=== PATIENT | male | born 1965 | race Two or more races ===

== ENCOUNTER 2023-09-26 11:52 | Emergency (ER) | payer MEDICAID ==
[~2023-09-26] VITALS: Ht 162.6 cm; Wt 72.6 kg
[2023-09-26 12:11] VITALS: BP 139/90; TEMP 97.9; O2SAT 98
[2023-09-26] MEDS ORDERED: IBUP-1955 PO (13:49)
== END 2023-09-26 13:55 | disposition home or self-care (01) ==
LOC: ER 11:52
DX: S83.91XA Sprain of unspecified site of right knee, initial encounter (principal); J45.909 Unspecified asthma, uncomplicated; Z88.0 Allergy status to penicillin; Z60.2 Problems related to living alone; X50.1XXA Overexertion from prolonged static or awkward postures, initial encounter; Y93.89 Activity, other specified; Y92.89 Other specified places as the place of occurrence of the external cause; Y99.8 Other external cause status
CPT/HCPCS: 73564-TC

== ENCOUNTER 2025-02-24 13:10 | Emergency (ER) | payer MEDICAID ==
[~2025-02-24] VITALS: Ht 162.6 cm; Wt 72.6 kg
[~2025-02-24 13:10] MED LIST: IBUP-1955 PO
[2025-02-24 13:32] VITALS: BP 150/94; TEMP 98.3; O2SAT 99
[2025-02-24] MEDS ORDERED: CEPH-570 PO (14:59)
[2025-02-24] MEDS ORDERED: CLIN300C12 PO (15:27)
== END 2025-02-24 16:00 | disposition home or self-care (01) ==
LOC: ER 13:14
DX: S02.2XXA Fracture of nasal bones, initial encounter for closed fracture (principal); I10 Essential (primary) hypertension; J45.909 Unspecified asthma, uncomplicated; Z88.0 Allergy status to penicillin; Z60.2 Problems related to living alone; Z79.899 Other long term (current) drug therapy; X58.XXXA Exposure to other specified factors, initial encounter; Y93.89 Activity, other specified; Y92.89 Other specified places as the place of occurrence of the external cause; Y99.8 Other external cause status
CPT/HCPCS: 70486-TC

== ENCOUNTER 2025-06-15 12:51 | Emergency (ER) | payer MEDICAID ==
[~2025-06-15] VITALS: Ht 162.6 cm; Wt 71.2 kg
[~2025-06-15 12:51] MED LIST changes: +CLIN300C12 PO
[2025-06-15] MEDS: IV NS 0.9% 1,000 ML BAG IV ONE (13:15)
[2025-06-15 13:19] LABS: PLATELET COUNT (AUTO) 189 K/uL (150-450); RED BLOOD CELL COUNT(AUTO) 5.00 MIL/uL (4.5-6.0); RED CELL DISTRIBUTION WIDTH 13.0 % (11.5-15.0); WHITE BLOOD COUNT (AUTO) 4.8 K/uL (4.3-11.0)
[2025-06-15 13:25] LABS: CALCIUM, SERUM 9.1 mg/dL (8.5-10.1); CREATININE 1.0 mg/dL (0.6-1.3); SODIUM SERUM 136 mmol/L (136-145); UREA NITROGEN, BLOOD 20 mg/dL (7-18)
[2025-06-15 13:31] LABS: ASPARTATE AMINOTRANSFERASE 32 U/L (15-37); TOTAL PROTEIN, SERUM 7.4 g/dL (6.4-8.2)
[2025-06-15 14:15] VITALS: BP 126/90; TEMP 98.4; O2SAT 98
== END 2025-06-15 14:17 | disposition home or self-care (01) ==
LOC: ER 12:55
DX: R55 Syncope and collapse (principal); R42 Dizziness and giddiness; R53.83 Other fatigue; I10 Essential (primary) hypertension; Z88.0 Allergy status to penicillin; Z60.2 Problems related to living alone
CPT/HCPCS: 99285; 96360; 71045; 93005; 85025; 80048; 80076; 36415; 84443; 84484; J7030